=== PATIENT | female | born 1995 | race Two or more races ===

== ENCOUNTER 2024-10-20 11:51 | Outpatient (AMB) | payer MEDICAID, SELFPAY ==
[2024-10-20 12:08] VITALS: BP 129/83; PULSE 80; RESP 18; TEMP 36.2; O2SAT 98; BMI 31.8
--- NOTE | 2024-10-20 12:08 | AMB.GYNCLNOT ---
Vital Signs 10/20/24 12:08 Height 1.65 m Height Method Stated Weight 86.721 kg Weight Measurement Method Standing Scale BMI 31.8 BP 129/83 Blood Pressure Source Automatic Cuff Blood Pressure Location Left Upper Arm Position Sitting Respiration 18 Pulse 80 Pulse Source Monitor Temp 97.2 F Temp Source Oral Pulse Oximetry (%) 98 Oxygen Delivery Method Room Air Allergies/Home Meds Allergies & Medications Allergies No Known Allergies Allergy (Verified 10/20/24 12:08) Medication Reconciliation aspirin 81 mg tablet,delayed release (Adult Aspirin Regimen) 81 mg PO QDAY #60 tabs 10/20/24 [Rx] valacyclovir 1 gram tablet (Valtrex) 1,000 mg PO QDAY #60 tabs 10/20/24 [Rx] Intake Visit Data Collection New Patient or Established: New Patient (never been to [facility]) Reason for Visit:: PREGANCY VERFICATION Consent obtained for Telemed Visit: No Seen by Clinical Staff ONLY (RN/MA): No Truck Trailer Mechanic Required: No Do You Feel Safe at Home: Yes Authorities Contacted: N/A PCP or OBGYN visit in last 3 months: Yes Hx Now: Yes Are you currently on any form of Control: No Last menstrual period: 07/28/24 Pain Present Currently: No Pain Scale Used: Hutchinson-Kang/Numerical Pain scale:: 0 Smoking Status Smoking Status: Never smoker Internal Corrosion Specialist history Internal Corrosion Specialist History Menstrual regularity: regular Flow: normal Monthly: Yes How many days does period last: 5 Age at menarche: 15 Menopausal: No Currently sexually active: Yes Questionnaires Covid-19 Vaccine Questionnaire Has patient been vacinated for Covid-19 Have you been vacinated for Covid-19: Yes PHQ-9 PHQ-2 Over the last 2 weeks, how often have you been bothered by any of the following problems? 1. Little interest or pleasure in doing things: not at all 2. Feeling down, depressed, or hopeless: not at all Total score: 0 PHQ-9 3. Trouble falling or staying asleep, or sleeping too much: Not at all 4. Feeling tired or having little energy: Not at all 5. Poor appetite or overeating: Not at all 6. Feeling bad about yourself - or that you are a failure or have let yourself or your family down: Not at all 7. Trouble concentrating on things, such as reading the newspaper or watching television: Not at all 8. Moving or speaking so slowly that other people could have noticed? - Or the opposite - being so fidgety or restless that you have been moving around a lot more than usual: not at all 9. Thoughts that you would be better off or of hurting yourself in some way: Not at all Total score: 0 If you checked off any problems, how difficult have these problems made it for you to do your work, take care of things at home, or get along with other people?: not difficult at all Source: Developed by Drs. Darci Templeton, Ngozi Womack, Lupillo Cook and colleagues, with an educational saundra from [employer]. Depression screen completed yes Social History Living Situation History Marital Status: Single Lives With: Family Housing: House Tobacco History Smoking Status: Never smoker Second Hand Smoke Exposure: No Alcohol History Alcohol Intake: Never Domestic Abuse History Do You Feel Safe at Home: Yes History of Present Illness HPI Narrative 29-year-old 2 para 1 for test today. Patient was late to her appointment so only a test was done. Unplanned . Last period July 28, 2024. Estimated due date May 04, 2024. Patient reports that her periods are every month x 4 to 5 days. Menarche at 14 years old. Patient denies social habits. She has a history of having knee surgery with an ACL last week. 2013 and after that surgery she was in bed and immobilized and developed a pulmonary embolism that was treated. Patient had eye surgery in 2005 and again is 2007 as well she has 1 child that baby was born at 40 weeks uncomplicated 7 pounds 13 and she breast-fed that baby. Patient reports that after she was treated with Lovenox. Patient also reports a history of herpes. Last outbreak was in February. She takes Valtrex prophylactic nightly. She denies any signs symptoms of miscarriage, no leaking or bleeding or contractions. And both her and the father the baby are happy. Review of Systems Review of Systems Systems Reviewed: All systems reviewed, normal except as documented Exam Narrative Physical exam: + test. FH:12. fht: 145, General Limitations: no limitations General Appearance: alert, in no apparent distress, comfortable, cooperative, healthy appearing, well developed and well groomed Head Head exam: atraumatic, normocephalic and normal inspection ENT ENT exam: Present normal exam, normal oropharynx and mucous membranes moist Resp Respiratory exam: Present normal lung sounds bilaterally Card Cardiovascular exam: Present regular rate, normal rhythm and normal heart sounds Abdominal Abdominal exam: Present soft and normal bowel sounds Psych Psychiatric exam: Present normal affect and normal mood Results Objective Laboratory: + preg test Office Procedures OB Clinic LOC & Office Proc's Nursing/Assessment Patient Status: Initial/New Patient OB Clinic Nursing Assessment: Medication Reconciliation, Update PMH in EMR and Vital Signs OB Clinic Coordination of Care: Education Complex Pt/Fam, Consent,records obtained, informed consent, Education Simp Pt/Fam, Lab and Imaging orders and Staff clarify orders Special Needs: Heart tones Miscellaneous Interventions: Blood/Urine Collection New Patient Charge New Patient Point Assignment: [id number] New Patient Point Charge: RADIO REPAIRER DOMESTIC Level 4 ([id number]) In Clinic Bedside tests Bedside HCG: Yes Results Urine HCG Urine HCG Positive Last Edit by Bisi Woods MA on 10/20/24 12:12 Assessment & Plan Diagnosis / Problem List (1) confirmed by positive urine test: Status: Acute (2) Encounter for supervision of high risk in first trimester, antepartum: Status: Acute Plan Did a OB panel today with a hemoglobin A1c, CMP was done, PT PTT were done as well. NIPT and carrier screens were also done. I did the referral to [facility] for MFM. I started patient on low-dose baby aspirin. She will continue with her prenatals that she is taking and then I refilled her Valtrex. I also advised taking vitamin C and lysine and zinc daily as this can help prevent outbreaks of herpes as well. And patient was referred to OB for next appointment to evaluate her history of pulmonary embolus and add to management if needed. SAB precautions were discussed Additional Plan Follow Up: 2 Weeks (obi)
== END 2024-10-20 12:55 | disposition home or self-care (01) ==
LOC: HODSOBC 11:51
PROVIDERS: Supervising Provider Advanced Practice Midwife; Visit Provider Advanced Practice Midwife
DX: Z32.01 Encounter for pregnancy test, result positive (principal); O98.511 Other viral diseases complicating pregnancy, first trimester; B00.9 Herpesviral infection, unspecified; Z3A.00 Weeks of gestation of pregnancy not specified; Z86.711 Personal history of pulmonary embolism
CPT/HCPCS: 81025; 99204; G0463

== ENCOUNTER 2024-11-16 10:46 | Outpatient (AMB) | payer MEDICAID, SELFPAY ==
[2024-11-16 11:00] VITALS: BP 127/80; PULSE 92; RESP 17; TEMP 36.8; O2SAT 98; BMI 32.1
--- NOTE | 2024-11-16 11:00 | AMB.OBVISIT ---
Vital Signs 11/16/24 11:00 Height 1.65 m Height Method Measured Weight 87.317 kg Weight Measurement Method Standing Scale BMI 32.1 BP 127/80 Blood Pressure Source Automatic Cuff Blood Pressure Location Right Upper Arm Position Sitting Respiration 17 Pulse 92 Pulse Source Monitor Temp 98.3 F Temp Source Temporal Artery Scan Pulse Oximetry (%) 98 Oxygen Delivery Method Room Air Allergies/Home Meds Allergies & Medications Allergies No Known Allergies Allergy (Verified 11/16/24 11:00) Medication Reconciliation aspirin 81 mg tablet,delayed release (Adult Aspirin Regimen) 81 mg PO QDAY #60 tabs 10/20/24 [Rx Confirmed 11/16/24] valacyclovir 1 gram tablet (Valtrex) 1,000 mg PO QDAY #60 tabs 10/20/24 [Rx Confirmed 11/16/24] Intake Visit Data Collection New Patient or Established: Established Patient (seen at [facility] within 3 years) Reason for Visit:: OBC Consent obtained for Telemed Visit: Yes Seen by Clinical Staff ONLY (RN/MA): No Installations Inspector Required: No Do You Feel Safe at Home: Yes Authorities Contacted: N/A PCP or OBGYN visit in last 3 months: Yes Date of Last PCP or OBGYN visit: 10/20/24 Hx Now: Yes Are you currently on any form of Control: No Pain Present Currently: No Pain Scale Used: Hutchinson-Kang/Numerical Pain scale:: 0 Smoking Status Smoking Status: Never smoker Questionnaires Covid-19 Vaccine Questionnaire Has patient been vacinated for Covid-19 Have you been vacinated for Covid-19: Yes PHQ-9 PHQ-2 Over the last 2 weeks, how often have you been bothered by any of the following problems? 1. Little interest or pleasure in doing things: not at all PHQ-9 8. Moving or speaking so slowly that other people could have noticed? - Or the opposite - being so fidgety or restless that you have been moving around a lot more than usual: not at all Source: Developed by Drs. Darci Templeton, Ngozi Womack, Lupillo Cook and colleagues, with an educational saundra from [employer]. Social History Living Situation History Lives With: Family Housing: House Tobacco History Smoking Status: Never smoker Second Hand Smoke Exposure: No Alcohol History Alcohol Intake: Never Domestic Abuse History Do You Feel Safe at Home: Yes History of Present Illness HPI Narrative Myla Villafana, a 2 para 1 patient, presents for a routine visit. Her last menstrual period was July 28 of this year, with an estimated due date of May 04, 2025. She reports a history of herpes, with her last outbreak in February, for which she takes Valtrex. She also has a history of pulmonary embolism following knee surgery. The patient denies any current obstetric complaints. She reports experiencing some back pain but does not provide further details about its onset, duration, or severity. Myla mentions taking her vitamins as prescribed. She has a history of a full-term, uncomplicated delivery with her previous , resulting in a 7-pound, 13-ounce baby. , she was treated with Lovenox prophylactically due to her history of pulmonary embolism. Myla's previous and delivery were uncomplicated. She notes that her pulmonary embolism occurred after knee surgery on her atrial meniscus, during which she was immobilized for an extended period. This medical history influenced her care in her previous , leading to the prophylactic use of Lovenox. Care OB Visit Log OB Flowsheet Initial Weight: Not Recorded Date <del>?</del> EGA Weight BP Alb Glu CTX Pres Fundal ht FHR Mov Dilation Station Effacement Hx Notes Visit Note 11/16/24 <del>?</del> 15w 6d 87.317 kg 127/80 occasional unknown 155 14w0d with h/o pulmonary embolism and 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 LMP 07/28/24, KODI 05/04/25 confirmed by sono. FHR 150, anatomy appropriate, placenta and fluid normal. Denies cramping, nausea, or OB complaints. Reports back pain without detail. Prior delivery full-term and uncomplicated. PE occurred after prior knee surgery; prophylactic Lovenox given in prior . Plan: Continue Valtrex and vitamins, monitor for VTE s/sx, consider Lovenox again. Send to [facility] for anatomy scan. Labs pending from [facility]?will call if abnormal. F/u in 4 weeks. KODI Calculator Estimated Delivery Date Method Current WG Current Estimate 05/04/25 LMP (Certain) 16w 0d Office Procedures OB Clinic LOC & Office Proc's Nursing/Assessment Patient Status: Established Patient OB Clinic Nursing Assessment: Medication Reconciliation, Update PMH in EMR and Vital Signs OB Clinic Coordination of Care: Complex Care and Chronic Disease 1-5, Consent,records obtained, informed consent, 4+ Authorizations needed, Lab and Imaging orders and Results/Orders obtained Special Needs: Heart tones Established Patient Charge Established Patient Point Assignment: 135 Established Patient Point Charge: EP Level 4 (120-155) Assessment & Plan Diagnosis / Problem List (1) Maternal obesity syndrome in first trimester: Status: Acute (2) Supervision of high risk , unspecified, first trimester: Status: Acute Plan Intrauterine Assessment: Patient is at 14 weeks gestation based on ultrasound measurements. Last menstrual period was July 28 with estimated due date of May 04, 2025. Ultrasound showed normal anatomy for gestational age, with heart rate of 150 bpm. Placenta appeared normal and amniotic fluid adequate. Patient denies any obstetric complaints. Previous resulted in full-term, uncomplicated delivery of 7-pound, 13-ounce infant. Plan: - Continue vitamins - Retrieve lab results from [facility] later today - Call patient if any abnormal results - Referral to [facility] for 2nd trimester anatomy scan - Follow-up visit in 4 weeks History of pulmonary embolism Assessment: Patient has history of pulmonary embolism following knee surgery with prolonged immobilization. In previous , treated prophylactically with Lovenox , but not during . Plan: - Monitor for signs and symptoms of venous thromboembolism throughout - Discuss potential need for thromboprophylaxis closer to delivery Herpes simplex virus infection Assessment: Patient reports history of herpes with last outbreak in February. Currently on suppressive therapy with Valtrex. Plan: - Continue Valtrex as prescribed - Monitor for any signs of outbreak during
== END 2024-11-16 11:17 | disposition home or self-care (01) ==
PROVIDERS: PCP Obstetrics & Gynecology; Referring Provider Obstetrics & Gynecology; Supervising Provider Obstetrics & Gynecology; Visit Provider Obstetrics & Gynecology
DX: O09.892 Supervision of other high risk pregnancies, second trimester (principal); O99.212 Obesity complicating pregnancy, second trimester; O98.312 Other infections with a predominantly sexual mode of transmission complicating pregnancy, second trimester; A60.00 Herpesviral infection of urogenital system, unspecified; Z3A.15 15 weeks gestation of pregnancy; Z86.711 Personal history of pulmonary embolism; Z79.82 Long term (current) use of aspirin
CPT/HCPCS: 99214; G0463

== ENCOUNTER 2024-12-21 10:47 | Outpatient (AMB) | payer MEDICAID, SELFPAY ==
--- NOTE | 2024-12-21 11:03 | AMB.OBVISIT ---
Vital Signs 12/21/24 11:04 Height 1.65 m Height Method Stated Weight 89.584 kg Weight Measurement Method Standing Scale BMI 32.9 BP 118/73 Blood Pressure Source Automatic Cuff Blood Pressure Location Left Upper Arm Position Sitting Respiration 16 Pulse 83 Pulse Source Monitor Temp 97 F Temp Source Oral Pulse Oximetry (%) 98 Oxygen Delivery Method Room Air Allergies/Home Meds Allergies & Medications Allergies No Known Allergies Allergy (Verified 12/21/24 11:05) Medication Reconciliation aspirin 81 mg tablet,delayed release (Adult Aspirin Regimen) 81 mg PO QDAY #60 tabs 10/20/24 [Rx Confirmed 12/21/24] valacyclovir 1 gram tablet (Valtrex) 1,000 mg PO QDAY #60 tabs 10/20/24 [Rx Confirmed 12/21/24] Intake Visit Data Collection New Patient or Established: Established Patient (seen at [facility] within 3 years) Reason for Visit:: OBC Seen by Clinical Staff ONLY (RN/MA): No Investigator Fraud Required: No Do You Feel Safe at Home: Yes Authorities Contacted: N/A PCP or OBGYN visit in last 3 months: Yes Date of Last PCP or OBGYN visit: 11/16/24 Hx Now: Yes Are you currently on any form of Control: No Pain Present Currently: No Pain Scale Used: Hutchinson-Kang/Numerical Pain scale:: 0 Smoking Status Smoking Status: Never smoker Questionnaires Covid-19 Vaccine Questionnaire Has patient been vacinated for Covid-19 Have you been vacinated for Covid-19: Yes PHQ-9 PHQ-2 Over the last 2 weeks, how often have you been bothered by any of the following problems? 1. Little interest or pleasure in doing things: not at all 2. Feeling down, depressed, or hopeless: not at all Total score: 0 PHQ-9 3. Trouble falling or staying asleep, or sleeping too much: Not at all 4. Feeling tired or having little energy: Not at all 5. Poor appetite or overeating: Not at all 6. Feeling bad about yourself - or that you are a failure or have let yourself or your family down: Not at all 7. Trouble concentrating on things, such as reading the newspaper or watching television: Not at all 8. Moving or speaking so slowly that other people could have noticed? - Or the opposite - being so fidgety or restless that you have been moving around a lot more than usual: not at all 9. Thoughts that you would be better off or of hurting yourself in some way: Not at all Total score: 0 If you checked off any problems, how difficult have these problems made it for you to do your work, take care of things at home, or get along with other people?: not difficult at all Source: Developed by Drs. Darci Templeton, Ngozi Womack, Lupillo Cook and colleagues, with an educational saundra from [employer]. Depression screen completed yes Social History Living Situation History Marital Status: Single Lives With: Family Housing: House Tobacco History Smoking Status: Never smoker Second Hand Smoke Exposure: No Alcohol History Alcohol Intake: Never Domestic Abuse History Do You Feel Safe at Home: Yes Care OB Visit Log OB Flowsheet Initial Weight: Not Recorded Date <del>?</del> EGA Weight BP Alb Glu CTX Pres Fundal ht FHR Mov Dilation Station Effacement Hx Notes Visit Note 11/16/24 <del>?</del> 15w 6d 87.317 kg 127/80 occasional unknown 155 14w0d with h/o pulmonary embolism and 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 LMP 07/28/24, KODI 05/04/25 confirmed by sono. FHR 150, anatomy appropriate, placenta and fluid normal. Denies cramping, nausea, or OB complaints. Reports back pain without detail. Prior delivery full-term and uncomplicated. PE occurred after prior knee surgery; prophylactic Lovenox given in prior . Plan: Continue Valtrex and vitamins, monitor for VTE s/sx, consider Lovenox again. Send to [facility] for anatomy scan. Labs pending from [facility]?will call if abnormal. F/u in 4 weeks. 12/21/24 <del>?</del> 20w 6d 89.584 kg 118/73 occasional unknown 145 No contractions, LOF, VB and reports good FM. Patient reports lower back pain and left-sided pain, as well as pelvic pressure. Denies urinary symptoms, fever, or chills. Denies SNELL, VC, and epigastric pain. - Myla Villafana is a 1 para 1 female at 20 weeks and 6 days gestation presenting for routine care. - She reports lower back pain affecting her whole lower back and left side. - She experiences pelvic pressure described as a lot of pressure down there. - She denies urinary symptoms including frequency, urgency, or burning. - She denies fever or chills. - She reports normal urinary patterns. - Glucose tolerance test to be completed at [facility] 1-2 days before next appointment (approximately 3-4 weeks from now, around 24 weeks gestation) - Follow up appointment in 4 weeks - Continue current care KODI Calculator Estimated Delivery Date Method Current WG Current Estimate 05/04/25 LMP (Certain) 21w 0d Notes Visit Date: 12/21/24 Last Updated by: Steffen Chandra MD - Hepatitis B screen: negative - Hepatitis C: negative - Rubella: immune - Blood group: B positive - Antibody screen: negative - HIV: non-reactive - Gonorrhea: negative - Maternity genome testing: negative for trisomy 21, 18, 13; gender consistent with male - SMS screening: negative - Cystic fibrosis screening: negative - heart rate: 148-149 bpm (normal) Office Procedures OBC Clinic LOC & Office Proc's Nursing/Assessment Patient Status: Established Patient OB Clinic Nursing Assessment: Medication Reconciliation, Update PMH in EMR and Vital Signs OB Clinic Coordination of Care: Education Complex Pt/Fam, Consent,records obtained, informed consent, Lab and Imaging orders, Results/Orders obtained and Staff clarify orders Special Needs: Heart tones Established Patient Charge Established Patient Point Assignment: 115 Established Patient Point Charge: EP Level 3 (80-115) Assessment & Plan Diagnosis / Problem List (1) Supervision of high risk , unspecified, first trimester: Status: Acute (2) Genital herpes affecting : Status: Acute (3) Maternal obesity syndrome in first trimester: Status: Acute Plan Problem List - , 20 weeks and 6 days gestation - Genital herpes - Low back pain - Pelvic pressure Assessment 20 weeks and 6 days intrauterine with estimated due date of May 04, 2025, in a 2 para 1 patient. heart rate is 148-149 beats per minute, which is within normal limits. Patient reports lower back pain, particularly on the left side, and pelvic pressure. Maternal screening tests are reassuring including negative hepatitis B and C, rubella immune, blood type B positive with negative antibody screen, HIV non-reactive, and negative gonorrhea screening. Genetic screening shows negative results for trisomy 21, 18, and 13, with gender consistent with male. SMS screening and cystic fibrosis screening are both negative. Patient has history of herpes lesions previously treated with Valtrex with pending lab results. Plan - Glucose tolerance test to be completed at [facility] 1-2 days before next appointment (approximately 3-4 weeks from now, around 24 weeks gestation) - Follow up appointment in 4 weeks - Continue current care 1. Progress Reviewed gestational age at 20 weeks and 6 days, growth, and heart rate of 148-149 bpm which is normal. Planned frequent visits with next appointment in 4 weeks. 2. Instructed patient to monitor movements and report decreases immediately. 3. Testing Counseled on routine third-trimester labs per guidelines including glucose screening test ordered for 24 weeks. Discussed potential need for ultrasound or monitoring based on risk factors. 4. Preeclampsia Precaution Educated on preeclampsia signs: severe headache, vision changes, right upper quadrant pain, sudden swelling. Advised urgent reporting of symptoms and discussed blood pressure monitoring if high risk. 5. Labor Precautions Reviewed labor signs: regular contractions, pelvic pressure, back pain, bleeding, or fluid leakage. Instructed to seek immediate care for these symptoms. 6. Lifestyle and Delivery Preparation Reinforced vitamins, nutrition, and safe activity. Discussed plan, pain management, and . Advised on labor preparation (e.g., hospital bag) and expectations. 7. Psychosocial Support Assessed emotional well-being and offered resources for mental health or parenting support.
[2024-12-21 11:04] VITALS: BP 118/73; PULSE 83; RESP 16; TEMP 36.1; O2SAT 98; BMI 32.9
== END 2024-12-21 11:14 | disposition home or self-care (01) ==
LOC: HODSOBC 10:47
PROVIDERS: Supervising Provider Obstetrics & Gynecology; Visit Provider Obstetrics & Gynecology
DX: O09.892 Supervision of other high risk pregnancies, second trimester (principal); O99.212 Obesity complicating pregnancy, second trimester; O98.312 Other infections with a predominantly sexual mode of transmission complicating pregnancy, second trimester; A60.00 Herpesviral infection of urogenital system, unspecified; O99.891 Other specified diseases and conditions complicating pregnancy; M54.50 Low back pain, unspecified; Z3A.20 20 weeks gestation of pregnancy
CPT/HCPCS: 99213; G0463

== ENCOUNTER 2025-01-11 10:34 | Outpatient (AMB) | payer MEDICAID, SELFPAY ==
[2025-01-11 10:35] VITALS: BP 117/75; PULSE 75; RESP 14; TEMP 36.8; O2SAT 98; BMI 33.3
--- NOTE | 2025-01-11 10:35 | AMB.OBVISIT ---
Vital Signs 01/11/25 10:35 Height 1.65 m Height Method Stated Weight 90.718 kg Weight Measurement Method Standing Scale BMI 33.3 BP 117/75 Blood Pressure Source Automatic Cuff Blood Pressure Location Left Upper Arm Position Sitting Respiration 14 Pulse 75 Pulse Source Monitor Temp 98.2 F Temp Source Oral Pulse Oximetry (%) 98 Oxygen Delivery Method Room Air Allergies/Home Meds Allergies & Medications Allergies No Known Allergies Allergy (Verified 03/17/25 08:57) Medication Reconciliation aspirin 81 mg tablet,delayed release (Adult Aspirin Regimen) 81 mg PO QDAY #60 tabs 10/20/24 [Rx Confirmed 03/17/25] valacyclovir 1 gram tablet (Valtrex) 1,000 mg PO QDAY #60 tabs 10/20/24 [Rx Confirmed 03/17/25] vits no.126-ferrous fum 28 mg iron-folic acid 800 mcg tablet (Classic ) 1 tab PO DAILY 01/11/25 [History Confirmed 03/17/25] Intake Visit Data Collection New Patient or Established: Established Patient (seen at [facility] within 3 years) Reason for Visit:: CARE Seen by Clinical Staff ONLY (RN/MA): No Information Services Vice President Required: No Do You Feel Safe at Home: Yes Authorities Contacted: N/A PCP or OBGYN visit in last 3 months: Yes Hx Now: Yes Are you currently on any form of Control: No Pain Present Currently: No Pain Scale Used: Hutchinson-Kang/Numerical Pain scale:: 0 Smoking Status Smoking Status: Never smoker Questionnaires Covid-19 Vaccine Questionnaire Has patient been vacinated for Covid-19 Have you been vacinated for Covid-19: Yes PHQ-9 PHQ-2 Over the last 2 weeks, how often have you been bothered by any of the following problems? 1. Little interest or pleasure in doing things: not at all 2. Feeling down, depressed, or hopeless: not at all Total score: 0 PHQ-9 3. Trouble falling or staying asleep, or sleeping too much: Not at all 4. Feeling tired or having little energy: Not at all 5. Poor appetite or overeating: Not at all 6. Feeling bad about yourself - or that you are a failure or have let yourself or your family down: Not at all 7. Trouble concentrating on things, such as reading the newspaper or watching television: Not at all 8. Moving or speaking so slowly that other people could have noticed? - Or the opposite - being so fidgety or restless that you have been moving around a lot more than usual: not at all 9. Thoughts that you would be better off or of hurting yourself in some way: Not at all Total score: 0 Source: Developed by Drs. Darci Templeton, Ngozi Womack, Lupillo Cook and colleagues, with an educational saundra from [employer]. Depression screen completed yes Social History Living Situation History Lives With: Family Housing: House Tobacco History Smoking Status: Never smoker Second Hand Smoke Exposure: No Alcohol History Alcohol Intake: Never Domestic Abuse History Do You Feel Safe at Home: Yes Care OB Visit Log OB Flowsheet Initial Weight: Not Recorded Date <del>?</del> EGA Weight BP Alb Glu CTX Pres Fundal ht FHR Mov Dilation Station Effacement Hx Notes Visit Note 11/16/24 <del>?</del> 15w 6d 87.317 kg 127/80 occasional unknown 155 14w0d with h/o pulmonary embolism and 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 LMP 07/28/24, KDOI 05/04/25 confirmed by sono. FHR 150, anatomy appropriate, placenta and fluid normal. Denies cramping, nausea, or OB complaints. Reports back pain without detail. Prior delivery full-term and uncomplicated. PE occurred after prior knee surgery; prophylactic Lovenox given in prior . Plan: Continue Valtrex and vitamins, monitor for VTE s/sx, consider Lovenox again. Send to [facility] for anatomy scan. Labs pending from [facility]?will call if abnormal. F/u in 4 weeks. 12/21/24 <del>?</del> 20w 6d 89.584 kg 118/73 occasional unknown 145 No contractions, LOF, VB and reports good FM. Patient reports lower back pain and left-sided pain, as well as pelvic pressure. Denies urinary symptoms, fever, or chills. Denies SNELL, VC, and epigastric pain. - Myla Villafana is a 1 para 1 female at 20 weeks and 6 days gestation presenting for routine care. - She reports lower back pain affecting her whole lower back and left side. - She experiences pelvic pressure described as a lot of pressure down there. - She denies urinary symptoms including frequency, urgency, or burning. - She denies fever or chills. - She reports normal urinary patterns. - Glucose tolerance test to be completed at [facility] 1-2 days before next appointment (approximately 3-4 weeks from now, around 24 weeks gestation) - Follow up appointment in 4 weeks - Continue current care 01/11/25 <del>?</del> 23w 6d 90.718 kg 117/75 occasional unknown 155 - Myla Villafana presents for routine visit at 23 weeks and 6 days gestation. - Patient has a history of pulmonary embolism after knee surgery in 2019. - Patient has not completed glucose and other laboratory tests that were ordered at the last appointment. - Patient reports feeling pressure and is requesting to be placed out of work on disability. - Patient is experiencing symptoms concerning for labor, prompting discussion of labor workup including internal ultrasound and fibronectin (FFN) testing. - Complete glucose test and other labs that were ordered at previous appointment - Proceed to hospital for labor workup including internal ultrasound and fibronectin (FFN) test - Initiate 4-week work disability leave with plan to extend for remainder of when patient reaches approximately 28 weeks gestation - Provide work disability letter to patient - Follow up appointment scheduled for the 01/20/25 <del>?</del> 25w 1d 91.852 kg 115/61 absent unknown 148 - She reports the baby is active with no contractions or other issues. - She confirms adherence to vitamins. - She denies diabetes. - Follow up in 4 weeks - Next round of blood tests due at next visit (around 30 weeks) - Tdap vaccine administration at next visit - Continue vitamins KODI Calculator Estimated Delivery Date Method Current WG Current Estimate 05/04/25 LMP (Certain) 34w 0d Notes Visit Date: 12/21/24 Last Updated by: Steffen Chandra MD - Hepatitis B screen: negative - Hepatitis C: negative - Rubella: immune - Blood group: B positive - Antibody screen: negative - HIV: non-reactive - Gonorrhea: negative - Maternity genome testing: negative for trisomy 21, 18, 13; gender consistent with male - SMS screening: negative - Cystic fibrosis screening: negative - heart rate: 148-149 bpm (normal) Office Procedures [facility] LOC & Office Proc's Nursing/Assessment Patient Status: Established Patient OB Clinic Nursing Assessment: Medication Reconciliation, Update PMH in EMR and Vital Signs OB Clinic Coordination of Care: Complex Care and Chronic Disease 1-5, Consent,records obtained, informed consent, Education Simp Pt/Fam, Lab and Imaging orders, Results/Orders obtained and Staff clarify orders Special Needs: Heart tones Established Patient Charge Established Patient Point Assignment: 135 Established Patient Point Charge: EP Level 4 (120-155) Assessment & Plan Diagnosis / Problem List (1) Supervision of high risk , unspecified, second trimester: Status: Acute Plan Problem List - Pulmonary embolism - labor Assessment 23-week 6-day patient presenting for routine visit with complaints of pelvic pressure concerning for labor. Patient has history of pulmonary embolism following knee surgery in 2019. Patient has not completed previously ordered glucose tolerance test and other laboratory studies. heart rate is 165 bpm, which is within normal limits. Plan - Complete glucose test and other labs that were ordered at previous appointment - Proceed to hospital for labor workup including internal ultrasound and fibronectin (FFN) test - Initiate 4-week work disability leave with plan to extend for remainder of when patient reaches approximately 28 weeks gestation - Provide work disability letter to patient - Follow up appointment scheduled for the 22 04. Progress Reviewed gestational age at 23 weeks and 6 days, growth, and heart rate (165 bpm, normal). Planned frequent visits (every 2 weeks until 36 weeks, then weekly). 2. Instructed patient to monitor movements and report decreases immediately. 3. Testing Counseled on routine third-trimester labs per guidelines. Patient has not completed glucose and other labs ordered at last appointment - instructed to complete before next visit. Discussed potential need for ultrasound or monitoring based on risk factors. 4. Preeclampsia Precaution Educated on preeclampsia signs: severe headache, vision changes, right upper quadrant pain, sudden swelling. Advised urgent reporting of symptoms and discussed blood pressure monitoring if high risk. 5. Labor Precautions Reviewed labor signs: regular contractions, pelvic pressure, back pain, bleeding, or fluid leakage. Instructed to seek immediate care for these symptoms. Patient experiencing pressure symptoms - planned labor workup including internal ultrasound and FFN test at hospital. 6. Lifestyle and Delivery Preparation Reinforced vitamins, nutrition, and safe activity. Discussed plan, pain management, and . Advised on labor preparation (e.g., hospital bag) and expectations. 7. Psychosocial Support Assessed emotional well-being and offered resources for mental health or parenting support. Discussed work disability options with 4-week initial period followed by extension for remainder of .
== END 2025-01-11 10:55 | disposition home or self-care (01) ==
LOC: HODSOBC 10:34
PROVIDERS: Supervising Provider Obstetrics & Gynecology; Visit Provider Obstetrics & Gynecology
DX: O09.892 Supervision of other high risk pregnancies, second trimester (principal); O60.02 Preterm labor without delivery, second trimester; Z3A.23 23 weeks gestation of pregnancy; Z86.711 Personal history of pulmonary embolism
CPT/HCPCS: 99214; G0463

== ENCOUNTER 2025-01-11 11:12 | Observation (INO) | payer MEDICAID, SELFPAY ==
[2025-01-11 11:15] VITALS: BP 114/61; PULSE 72; RESP 17; RESP 99; TEMP 36.9; BMI 33.3
[2025-01-11 11:31] VITALS: BP 114/61; PULSE 71; PULSE 74; O2SAT 100
[2025-01-11 11:36] VITALS: PULSE 67; O2SAT 99
[2025-01-11 11:41] VITALS: PULSE 68; O2SAT 99
--- NOTE | 2025-01-11 11:44 | XR_ITS ---
Examination: OB Transvaginal ultrasound of the pelvis, limited Technique: Transvaginal sonographic images pelvis performed using white scale imaging Exam date and time: January 11, 2025, 11:40 a.m. INDICATIONS: labor, pelvic contractions today, unknown cervical length. FINDINGS: Cervix 3.7 cm close IMPRESSION: Cervix 3.7 cm closed.
[2025-01-11 11:51] VITALS: PULSE 83; O2SAT 99
[2025-01-11 13:08] LABS: FFN Specimen Descripton Clr Colrless Aqueous; Fetal Fibronectin Negative (Negative)
== END 2025-01-11 13:04 | disposition home or self-care (01) ==
PROVIDERS: Admitting Provider Obstetrics & Gynecology; PCP Nurse Practitioner Family; Visit Provider Obstetrics & Gynecology
DX: Z34.82 Encounter for supervision of other normal pregnancy, second trimester (principal); Z3A.23 23 weeks gestation of pregnancy
CPT/HCPCS: 59899; 76817; 82731

== ENCOUNTER 2025-01-20 10:59 | Outpatient (AMB) | payer MEDICAID, SELFPAY ==
[2025-01-20 11:23] VITALS: BP 115/61; PULSE 80; RESP 18; TEMP 36.2; O2SAT 98
--- NOTE | 2025-01-20 11:23 | OBCLNT_ITS ---
Vital Signs 01/20/25 11:23 Weight 91.852 kg Weight Measurement Method Standing Scale BP 115/61 Blood Pressure Source Automatic Cuff Blood Pressure Location Left Upper Arm Position Sitting Respiration 18 Pulse 80 Pulse Source Monitor Temp 97.2 F Temp Source Oral Pulse Oximetry (%) 98 Oxygen Delivery Method Room Air Allergies/Home Meds Allergies & Medications Allergies No Known Allergies Allergy (Verified 01/20/25 11:23) Medication Reconciliation aspirin 81 mg tablet,delayed release (Adult Aspirin Regimen) 81 mg PO QDAY #60 tabs 10/20/24 [Rx Confirmed 01/20/25] valacyclovir 1 gram tablet (Valtrex) 1,000 mg PO QDAY #60 tabs 10/20/24 [Rx Confirmed 01/20/25] vits no.126-ferrous fum 28 mg iron-folic acid 800 mcg tablet (Classic ) 1 tab PO DAILY 01/11/25 [History Confirmed 01/20/25] Intake Visit Data Collection New Patient or Established: Established Patient (seen at [facility] within 3 years) Reason for Visit:: obc Seen by Clinical Staff ONLY (RN/MA): No Anchorman Required: No Do You Feel Safe at Home: Yes Authorities Contacted: N/A PCP or OBGYN visit in last 3 months: Yes Date of Last PCP or OBGYN visit: 01/11/25 Hx Now: Yes Are you currently on any form of Control: No Pain Scale Used: Hutchinson-Kang/Numerical Pain scale:: 0 Smoking Status Smoking Status: Never smoker Immunizations Flu Vaccine in the Last 12 Months: No Flu Vaccine Exclusion Criteria: No Exclusion Criteria Questionnaires Covid-19 Vaccine Questionnaire Has patient been vacinated for Covid-19 Have you been vacinated for Covid-19: No PHQ-9 PHQ-2 Over the last 2 weeks, how often have you been bothered by any of the following problems? 1. Little interest or pleasure in doing things: not at all 2. Feeling down, depressed, or hopeless: not at all Total score: 0 PHQ-9 3. Trouble falling or staying asleep, or sleeping too much: Not at all 4. Feeling tired or having little energy: Not at all 5. Poor appetite or overeating: Not at all 6. Feeling bad about yourself - or that you are a failure or have let yourself or your family down: Not at all 7. Trouble concentrating on things, such as reading the newspaper or watching television: Not at all 8. Moving or speaking so slowly that other people could have noticed? - Or the opposite - being so fidgety or restless that you have been moving around a lot more than usual: not at all 9. Thoughts that you would be better off or of hurting yourself in some way: Not at all Total score: 0 If you checked off any problems, how difficult have these problems made it for you to do your work, take care of things at home, or get along with other people?: not difficult at all Source: Developed by Drs. Darci Templeton, Ngozi Womack, Lupillo Cook and colleagues, with an educational saundra from [employer]. Depression screen completed yes Social History Living Situation History Lives With: Family Housing: House Tobacco History Smoking Status: Never smoker Second Hand Smoke Exposure: No Alcohol History Alcohol Intake: Never Domestic Abuse History Do You Feel Safe at Home: Yes Care OB Visit Log OB Flowsheet Initial Weight: Not Recorded Date -?-?-?-?-?-?-?-?-?-?-?-?- EGA Weight BP Alb Glu CTX Pres Fundal ht FHR Mov Dilation Station Effacement Hx Notes Visit Note 11/16/24 -?-?-?-?-?-?-?-?-?-?-?-?- 15w 6d 87.317 kg 127/80 occasional unknown 155 14w0d with h/o pulmonary embolism and 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 LMP 07/28/24, KODI 05/04/25 confirmed by sono. FHR 150, anatomy appropriate, placenta and fluid normal. Denies cramping, nausea, or OB compl aints. Reports back pain without detail. Prior delivery full-term and uncomplicated. PE occurred after prior knee surgery; prophylactic Lovenox given in prior . P darnell: Continue Valtrex and vitamins, monitor for VTE s/sx, consider Lovenox again. Send to [facility] for anatomy scan. Labs pending from [facility]?will call if abnormal. F/u in 4 weeks. 12/21/24 -?-?-?-?-?-?-?-?-?-?-?-?- 20w 6d 89.584 kg 118/73 occasional unknown 145 No contractions, LOF, VB and reports good FM. Patient reports lower back pain and left -sided pain, as well as pelvic pressure. Denies urinary symptoms, fever, or chills. Denies SNELL, VC, and epigastric pain. - Myla Villafana is a 1 para 1 f emale at 20 weeks and 6 days gestation presenting for routine care. - She reports lower back pain affecting her whole lower back and left side. - She experiences pelvic pressure descri bed as a lot of pressure down there. - She denies urinary symptoms including frequency, urgency, or burning. - She denies fever or chills. - She reports normal urinary patterns. - Glucose tolerance test to be completed at [facility] 1-2 days before next appointment (approximately 3-4 weeks from now, around 24 weeks gestation) - Follow up appointment in 4 weeks - Continue current care 01/20/25 -?-?-?-?-?-?-?-?-?-?-?-?- 25w 1d 91.852 kg 115/61 absent unknown 148 - She reports the baby is active with no contractions or other issues. - She confirms adherence to vit amins. - She denies diabetes. - Fol low up in 4 weeks - Next round of blood tests due at next visit (around 30 weeks) - Tdap vaccine administration at next vi sit - Continue vitamins KODI Calculator Estimated Delivery Date Method Current WG Current Estimate 05/04/25 LMP (Certain) 25w 4d Notes Visit Date: 12/21/24 Last Updated by: Steffen Chandra MD - Hepatitis B screen: negative - Hepatitis C: negative - Rubella: immune - Blood group: B positive - Antibody screen: negative - HIV: non-reactive - Gonorrhea: negative - Maternity genome testing: negative for trisomy 21, 18, 13; gender consistent with male - SMS screening: negative - Cystic fibrosis screening: negative - heart rate: 148-149 bpm (normal) Office Procedures [facility] Clinic LOC & Office Proc's Nursing/Assessment Patient Status: Established Patient OB Clinic Nursing Assessment: Medication Reconciliation, Update PMH in EMR and Vital Signs OB Clinic Coordination of Care: Consent,records obtained, informed consent, Education Simp Pt/Fam, Lab and Imaging orders, Results/Orders obtained and Staff clarify orders Special Needs: Heart tones Established Patient Charge Established Patient Point Assignment: 110 Established Patient Point Charge: EP Level 3 (80-115) Assessment & Plan Diagnosis / Problem List (1) Genital herpes affecting : Status: Acute (2) Maternal obesity syndrome in first trimester: Status: Acute (3) Supervision of high risk , unspecified, second trimester: Status: Acute Plan Assessment 25-week and 1-day patient with negative 1-hour glucose tolerance test (result 112, normal). heart rate is normal at 145-148 bpm. Patient reports active movement with no contractions or other concerning symptoms. Patient is compliant with vitamins. Plan - Follow up in 4 weeks - Next round of blood tests due at next visit (around 30 weeks) - Tdap vaccine administration at next visit - Continue vitamins 1. Progress Reviewed gestational age (25 weeks and 1 day), growth, and heart rate (145-148 bpm, normal). Planned frequent visits (scheduled return in 4 weeks). 2. Instructed patient to monitor movements and report decreases immediately. 3. Testing Counseled on routine third-trimester labs per guidelines (next round of tests due around 30 weeks). Discussed potential need for ultrasound or monitoring based on risk factors. 4. Preeclampsia Precaution Educated on preeclampsia signs: severe headache, vision changes, right upper quadrant pain, sudden swelling. Advised urgent reporting of symptoms and discussed blood pressure monitoring if high risk. 5. Labor Precautions Reviewed labor signs: regular contractions, pelvic pressure, back pain, bleeding, or fluid leakage. Instructed to seek immediate care for these symptoms. 6. Lifestyle and Delivery Preparation Reinforced vitamins (patient confirmed taking vitamins), nutrition, and safe activity. Discussed plan, pain management, and . Advised on labor preparation (e.g., hospital bag) and expectations. 7. Psychosocial Support Assessed emotional well-being and offered resources for mental health or parenting support.
== END 2025-01-20 11:34 | disposition home or self-care (01) ==
LOC: HODSOBC 10:59
PROVIDERS: Supervising Provider Obstetrics & Gynecology; Visit Provider Obstetrics & Gynecology
DX: O09.892 Supervision of other high risk pregnancies, second trimester (principal); O99.212 Obesity complicating pregnancy, second trimester; O98.312 Other infections with a predominantly sexual mode of transmission complicating pregnancy, second trimester; A60.00 Herpesviral infection of urogenital system, unspecified; Z3A.25 25 weeks gestation of pregnancy
CPT/HCPCS: 99213; G0463

== ENCOUNTER 2025-02-21 10:35 | Outpatient (AMB) | payer MEDICAID, SELFPAY ==
[2025-02-21 10:44] VITALS: BP 116/74; PULSE 82; RESP 18; TEMP 36.2; O2SAT 98
--- NOTE | 2025-02-21 10:44 | AMB.OBPNC ---
Vital Signs 02/21/25 10:44 Weight 93.894 kg Weight Measurement Method Standing Scale BP 116/74 Blood Pressure Source Automatic Cuff Blood Pressure Location Left Upper Arm Position Sitting Respiration 18 Pulse 82 Pulse Source Monitor Temp 97.2 F Temp Source Oral Pulse Oximetry (%) 98 Oxygen Delivery Method Room Air Allergies/Home Meds Allergies & Medications Allergies No Known Allergies Allergy (Verified 03/17/25 08:57) Medication Reconciliation aspirin 81 mg tablet,delayed release (Adult Aspirin Regimen) 81 mg PO QDAY #60 tabs 10/20/24 [Rx Confirmed 03/17/25] valacyclovir 1 gram tablet (Valtrex) 1,000 mg PO QDAY #60 tabs 10/20/24 [Rx Confirmed 03/17/25] vits no.126-ferrous fum 28 mg iron-folic acid 800 mcg tablet (Classic ) 1 tab PO DAILY 01/11/25 [History Confirmed 03/17/25] Immunizations Immunizations Flu Vaccine in the Last 12 Months: No Flu Vaccine Exclusion Criteria: No Exclusion Criteria Care OB Visit Log OB Flowsheet Initial Weight: Not Recorded Date <del>?</del> EGA Weight BP Alb Glu CTX Pres Fundal ht FHR Mov Dilation Station Effacement Hx Notes Visit Note 11/16/24 <del>?</del> 15w 6d 87.317 kg 127/80 occasional unknown 155 14w0d with h/o pulmonary embolism and 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 LMP 07/28/24, KODI 05/04/25 confirmed by sono. FHR 150, anatomy appropriate, placenta and fluid normal. Denies cramping, nausea, or OB complaints. Reports back pain without detail. Prior delivery full-term and uncomplicated. PE occurred after prior knee surgery; prophylactic Lovenox given in prior . Plan: Continue Valtrex and vitamins, monitor for VTE s/sx, consider Lovenox again. Send to [facility] for anatomy scan. Labs pending from [facility]?will call if abnormal. F/u in 4 weeks. 12/21/24 <del>?</del> 20w 6d 89.584 kg 118/73 occasional unknown 145 No contractions, LOF, VB and reports good FM. Patient reports lower back pain and left-sided pain, as well as pelvic pressure. Denies urinary symptoms, fever, or chills. Denies SENLL, VC, and epigastric pain. - Myla Villafana is a 1 para 1 female at 20 weeks and 6 days gestation presenting for routine care. - She reports lower back pain affecting her whole lower back and left side. - She experiences pelvic pressure described as a lot of pressure down there. - She denies urinary symptoms including frequency, urgency, or burning. - She denies fever or chills. - She reports normal urinary patterns. - Glucose tolerance test to be completed at [facility] 1-2 days before next appointment (approximately 3-4 weeks from now, around 24 weeks gestation) - Follow up appointment in 4 weeks - Continue current care 01/11/25 <del>?</del> 23w 6d 90.718 kg 117/75 occasional unknown 155 - Myla Villafana presents for routine visit at 23 weeks and 6 days gestation. - Patient has a history of pulmonary embolism after knee surgery in 2019. - Patient has not completed glucose and other laboratory tests that were ordered at the last appointment. - Patient reports feeling pressure and is requesting to be placed out of work on disability. - Patient is experiencing symptoms concerning for labor, prompting discussion of labor workup including internal ultrasound and fibronectin (FFN) testing. - Complete glucose test and other labs that were ordered at previous appointment - Proceed to hospital for labor workup including internal ultrasound and fibronectin (FFN) test - Initiate 4-week work disability leave with plan to extend for remainder of when patient reaches approximately 28 weeks gestation - Provide work disability letter to patient - Follow up appointment scheduled for the 01/20/25 <del>?</del> 25w 1d 91.852 kg 115/61 absent unknown 148 - She reports the baby is active with no contractions or other issues. - She confirms adherence to vitamins. - She denies diabetes. - Follow up in 4 weeks - Next round of blood tests due at next visit (around 30 weeks) - Tdap vaccine administration at next visit - Continue vitamins 02/21/25 <del>?</del> 29w 5d 93.894 kg 116/74 absent unknown 145 - She recently saw maternal medicine for consultation regarding her history of blood clot. - Patient reports she is doing well overall, stating I'm good when asked about how everything is going. - She is currently taking baby aspirin as prescribed from the beginning of . - Taking two 81mg tablets daily for a total of 162mg (equivalent to high-dose aspirin at 160mg as recommended by maternal medicine). - She is not currently on anticoagulation therapy during this . - Patient had an ultrasound on January 31 showing baby measuring 840 grams at the 38th percentile. - She has an upcoming follow-up ultrasound scheduled for March 14 with [facility] to recheck the baby's kidneys. - Continue high-dose aspirin 160 mg daily (patient currently taking two 81 mg tablets) - Obtain CBC and RPR labs at [facility] to check for anemia (routine 30-week testing) - Defer thrombophilia labs until 6-8 weeks for more accurate results - Follow-up ultrasound with [facility] on March 14 to reassess kidneys - Schedule next obstetric visit after March 14 ultrasound - Call patient if any lab abnormalities before next visit KODI Calculator Estimated Delivery Date Method Current WG Current Estimate 05/04/25 LMP (Certain) 34w 0d Notes Visit Date: 12/21/24 Last Updated by: Steffen Chandra MD - Hepatitis B screen: negative - Hepatitis C: negative - Rubella: immune - Blood group: B positive - Antibody screen: negative - HIV: non-reactive - Gonorrhea: negative - Maternity genome testing: negative for trisomy 21, 18, 13; gender consistent with male - SMS screening: negative - Cystic fibrosis screening: negative - heart rate: 148-149 bpm (normal) Office Procedures [facility] LOC & Office Proc's Nursing/Assessment Patient Status: Established Patient OB Clinic Nursing Assessment: Medication Reconciliation, Update PMH in EMR and Vital Signs OB Clinic Coordination of Care: Consent,records obtained, informed consent, Education Simp Pt/Fam, Lab and Imaging orders, Results/Orders obtained and Staff clarify orders Special Needs: Heart tones Established Patient Charge Established Patient Point Assignment: 110 Established Patient Point Charge: EP Level 3 (80-115) Assessment & Plan Diagnosis / Problem List (1) Supervision of high risk , unspecified, second trimester: Status: Acute Plan Problem List - at 29 weeks and 5 days gestation - Pulmonary embolism - renal abnormality Assessment 29-week 5-day patient with history of pulmonary embolism, currently not on anticoagulation. Recent ultrasound from January 31 shows weight of 840 grams at 38th percentile. Patient is currently taking high-dose aspirin (160 mg) as prescribed by maternal medicine. Maternal medicine has discussed thrombophilia workup, which will be deferred until for more accurate results. Follow-up ultrasound scheduled to reassess kidneys. Plan - Continue high-dose aspirin 160 mg daily (patient currently taking two 81 mg tablets) - Obtain CBC and RPR labs at [facility] to check for anemia (routine 30-week testing) - Defer thrombophilia labs until 6-8 weeks for more accurate results - Follow-up ultrasound with [facility] on March 14 to reassess kidneys - Schedule next obstetric visit after March 14 ultrasound - Call patient if any lab abnormalities before next visit 1. Progress Reviewed gestational age (29 weeks and 5 days), growth (840 grams, 38th percentile), and heart rate (138 bpm). Planned frequent visits (every 2 weeks until 36 weeks, then weekly). 2. Instructed patient to monitor movements and report decreases immediately. 3. Testing Counseled on routine third-trimester labs per guidelines (CBC and RPR ordered). Discussed potential need for ultrasound or monitoring based on risk factors (follow-up ultrasound scheduled March 14 to check baby's kidneys). 4. Preeclampsia Precaution Educated on preeclampsia signs: severe headache, vision changes, right upper quadrant pain, sudden swelling. Advised urgent reporting of symptoms and discussed blood pressure monitoring if high risk (patient started on high-dose aspirin 160mg for preeclampsia prevention). 5. Labor Precautions Reviewed labor signs: regular contractions, pelvic pressure, back pain, bleeding, or fluid leakage. Instructed to seek immediate care for these symptoms. 6. Lifestyle and Delivery Preparation Reinforced vitamins, nutrition, and safe activity. Discussed plan, pain management, and . Advised on labor preparation (e.g., hospital bag) and expectations. 7. Psychosocial Support Assessed emotional well-being and offered resources for mental health or parenting support.
== END 2025-02-21 11:11 | disposition home or self-care (01) ==
LOC: HODSOBC 10:35
PROVIDERS: Supervising Provider Obstetrics & Gynecology; Visit Provider Obstetrics & Gynecology
DX: O09.893 Supervision of other high risk pregnancies, third trimester (principal); O35.EXX0 Maternal care for other (suspected) fetal abnormality and damage, fetal genitourinary anomalies, not applicable or unspecified; Z3A.29 29 weeks gestation of pregnancy; Z86.711 Personal history of pulmonary embolism
CPT/HCPCS: 99213; G0463

== ENCOUNTER 2025-03-17 08:52 | Outpatient (AMB) | payer MEDICAID, SELFPAY ==
--- NOTE | 2025-03-17 08:53 | OBCLNT_ITS ---
Vital Signs 03/17/25 08:56 Weight 94.801 kg Weight Measurement Method Standing Scale BP 116/80 Blood Pressure Source Automatic Cuff Blood Pressure Location Left Upper Arm Position Sitting Respiration 18 Pulse 90 Pulse Source Monitor Temp 97.2 F Temp Source Oral Pulse Oximetry (%) 98 Oxygen Delivery Method Room Air Allergies/Home Meds Allergies & Medications Allergies No Known Allergies Allergy (Verified 03/28/25 10:07) Medication Reconciliation aspirin 81 mg tablet,delayed release (Adult Aspirin Regimen) 81 mg PO QDAY #60 tabs 10/20/24 [Rx Confirmed 03/28/25] valacyclovir 1 gram tablet (Valtrex) 1,000 mg PO QDAY #60 tabs 10/20/24 [Rx Confirmed 03/28/25] vits no.126-ferrous fum 28 mg iron-folic acid 800 mcg tablet (Classic ) 1 tab PO DAILY 01/11/25 [History Confirmed 03/28/25] Immunizations Immunizations Flu Vaccine in the Last 12 Months: No Flu Vaccine Exclusion Criteria: No Exclusion Criteria Care OB Visit Log OB Flowsheet Initial Weight: Not Recorded Date -?-?-?-?-?--?-?-?-?-?-?-?- EGA Weight BP Alb Glu CTX Pres Fundal ht FHR Mov Dilation Station Effacement Hx Notes Visit Note 11/16/24 -?-?-?-?-?-?-?-?-?-?-?-?- 15w 6d 87.317 kg 127/80 occasional unknown 155 14w0d with h/o pulmonary embolism and 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 LMP 07/28/24, KODI 05/04/25 confirmed by sono. FHR 150, anatomy appropriate, placenta and fluid normal. Denies cramping, nausea, or OB complaints. Reports back pain without detail. Prior delivery full-term and uncomplicated. PE occurred after prior knee surgery; prophylactic Lovenox given in prior . P darnell: Continue Valtrex and vitamins, monitor for VTE s/sx, consider Lovenox again. Send to [facility] for anatomy scan. Labs pending from [facility]?will call if abnormal. F/u in 4 weeks. 12/21/24 -?-?-?-?-?-?-?-?-?-?-?-?- 20w 6d 89.584 kg 118/73 occasional unknown 145 No contractions, LOF, VB and reports good FM. Patient reports lower back pain and left -sided pain, as well as pelvic pressure. Denies urinary symptoms, fever, or chills. Denies SNELL, VC, and epigastric pain. - Myla Villafana is a 1 para 1 f emale at 20 weeks and 6 days gestation presenting for routine care. - She reports lower back pain affecting her whole lower back and left side. - She experiences pelvic pressure descri bed as a lot of pressure down there. - She denies urinary symptoms including frequency, urgency, or burning. - She denies fever or chills. - She reports normal urinary patterns. - Glucose tolerance test to be completed at [facility] 1-2 days before next appointment (approximately 3-4 weeks from now, around 24 weeks gestation) - Follow up appointment in 4 weeks - Continue current care 01/11/25 -?-?-?-?-?-?-?-?-?-?-?-?- w 6d 90.718 kg 117/75 occasional unknown 155 - Myla Villafana presents for routine visit at 23 weeks and 6 days gestation. - Patient has a history of pulmonary emb olism after knee surgery in 2019. - Patient has not completed glucose and other laboratory tests that were ordered at the last appointment. - Patient reports feeling pressure and i s requesting to be placed out of work on disability. - Patient is experiencing symptoms ana rning for labor, prompting discussion of labor workup including internal ultrasound and fibronectin (FFN) testing. - Com plete glucose test and other labs that were ordered at previous appointment - Proceed to hospital for labor workup including internal ultrasound and fibronectin (FFN) test - Initiate 4-week work disability leave with plan to extend for remainder of when patient reaches approximately 28 weeks gestation - Provide work disability letter to lizzy ent - Follow up appointment scheduled for 01/20/25 -?-?-?-?-?-?-?-?-?-?-?-?- 25w 1d 91.852 kg 115/61 absent unknown 148 - She reports the baby is active with no contractions or other issues. - She confirms adherence to vit amins. - She denies diabetes. - Fol low up in 4 weeks - Next round of blood tests due at next visit (around 30 weeks) - Tdap vaccine administration at next vi sit - Continue vitamins 02/21/25 -?-?-?-?-?-?-?-?-?-?-?-?- 29w 5d 93.894 kg 116/74 absent unknown 145 - She recently saw maternal medicine for consultation regarding her history of blood clot. - Patient reports she is doing well over all, stating I'm good when asked about how everything is going. - She is currently taking baby aspirin a s prescribed from the beginning of . - Taking two 81mg tablets daily for a total of 162mg (equivalent to high-dose aspirin at 160mg as recommended by maternal medicine). - She is not currently on anticoagulatio n therapy during this . - Patient had an ultrasound on January 31 showing baby measuring 840 grams at the 38th percentile. - She has an upcoming follow-up ultrasou nd scheduled for March 14 with [facility] to recheck the baby's kidneys. - Continue high-dose aspirin 160 mg daily (patient currently taking two 81 mg tablets) - [facility] for [facility] (routine 30-week testing) - Defer thrombophilia labs until 6-8 wee ks for more accurate results - Follow-up ultrasound with [facility] on March 14 to reassess kidneys - Schedule next obstetric visit after ber 16 ultrasound - Call patient if any lab abnormalities before next visit 03/17/25 -?-?-?-?-?-?-?--?-?-?-?-?- 33w 1d 94.801 kg 116/80 absent unknown 34 152 active - She reports experiencing contractions that come and go. - Contractions occur daily but are not consistently close together - She does not feel they are occurring at 5-minute intervals - Baby remains active. - She denies any other issues or concerns. - GBS culture swab at 36 weeks - Follow up in 2-3 weeks - Order CBC (previous order did not come through) - Patient instructed to time contraction s and come in for evaluation if contractions are 5 minutes apart and persist for 20-30 minutes 03/28/25 -?-?-?-?-?-?-?-?-?-?-?-?- 34w 5d 96.332 kg 121/77 occasional unstable 35 135 active - She reports experiencing contractions but describes them as not that bad. - She did not seek evaluation at the h ospital due to the mild nature of the contractions. - She experiences soreness in her back . - She clarifies that her previous delive ry was not labor, contrary to what was documented in her delivery record. - She reports that renal dilatatio n has resolved per last [facility] ultrasounds. - Group B strep culture swab to be performed at next appointment - Follow up in 2 weeks - Patient instructed to come to hospital for evaluation if experiencing contractions given history KODI Calculator Estimated Delivery Date Method Current WG Current Estimate 05/04/25 LMP (Certain) 34w 5d Notes Visit Date: 03/17/25 Last Updated by: Steffen Chandra MD Laboratory, Imaging, and Diagnostic Test Results - CBC (03/11): Hemoglobin 12.1 g/dL - RPR: Nonreactive - MFM ultrasound at [facility]: Single fetus at 32 weeks 5 days, cephalic presentation, EFW 2014 grams at 37th percentile, normal amniotic fluid, normal anatomy, normal renal pelvis (right pelvicaliectasis resolved) Visit Date: 12/21/24 Last Updated by: Steffen Chandra MD - Hepatitis B screen: negative - Hepatitis C: negative - Rubella: immune - Blood group: B positive - Antibody screen: negative - HIV: non-reactive - Gonorrhea: negative - Maternity genome testing: negative for trisomy 21, 18, 13; gender consis tent with male - SMS screening: negative - Cystic fibrosis screening: negative - heart rate: 148-149 bpm (normal) Office Procedures [facility] LOC & Office Proc's Nursing/Assessment Patient Status: Established Patient OB Clinic Nursing Assessment: Medication Reconciliation, Update PMH in EMR and Vital Signs OB Clinic Coordination of Care: Complex Care and Chronic Disease 1-5, Consent,records obtained, informed consent, Education Simp Pt/Fam, Lab and Imaging orders, Results/Orders obtained and Staff clarify orders Special Needs: Heart tones Established Patient Charge Established Patient Point Assignment: 135 Established Patient Point Charge: EP Level 4 (120-155) Assessment & Plan Diagnosis / Problem List (1) Maternal care for (suspected) abnormality and damage, unspecified, not applicable or unspecified: Status: Acute Plan Problem List - at 33 weeks and 1 day gestation - Ray Arevalo contractions Assessment 33 weeks and 1 day gestation in a patient with reassuring status. Laboratory results show hemoglobin of 12.1 and nonreactive RPR. MFM ultrasound at 32 weeks 5 days demonstrates single fetus in cephalic presentation with estimated weight of 2014 grams at 37th percentile, normal amniotic fluid, normal anatomy, and resolution of previously noted renal pelvis dilatation. Patient reports intermittent contractions that are not occurring at regular 5-minute intervals, consistent with Ray Arevalo contractions. heart rate is 152 bpm, which is within normal limits. Plan - GBS culture swab at 36 weeks - Follow up in 2-3 weeks - Order CBC (previous order did not come through) - Patient instructed to time contractions and come in for evaluation if contractions are 5 minutes apart and persist for 20-30 minutes 1. Progress Reviewed gestational age at 33 weeks 1 day, growth with EFW 2014 grams at 37th percentile, and heart rate of 152 bpm. Planned frequent visits (every 2 weeks until 36 weeks, then weekly). 2. Instructed patient to monitor movements and report decreases immediately. 3. Testing Counseled on routine third-trimester labs per guidelines including GBS culture swab at 36 weeks. Discussed potential need for ultrasound or monitoring based on risk factors. 4. Preeclampsia Precaution Educated on preeclampsia signs: severe headache, vision changes, right upper quadrant pain, sudden swelling. Advised urgent reporting of symptoms and discussed blood pressure monitoring if high risk. 5. Labor Precautions Reviewed labor signs including regular contractions 5 minutes apart persisting for 20-30 minutes, pelvic pressure, back pain, bleeding, or fluid leakage. Explained Ray Arevalo contractions are normal. Instructed to seek immediate care for these symptoms. 6. Lifestyle and Delivery Preparation Reinforced vitamins, nutrition, and safe activity. Discussed plan, pain management, and . Advised on labor preparation (e.g., hospital bag) and expectations. 7. Psychosocial Support Assessed emotional well-being and offered resources for mental health or parenting support.
[2025-03-17 08:56] VITALS: BP 116/80; PULSE 90; RESP 18; TEMP 36.2; O2SAT 98
== END 2025-03-17 09:36 | disposition home or self-care (01) ==
LOC: HODSOBC 08:52
PROVIDERS: Supervising Provider Obstetrics & Gynecology; Visit Provider Obstetrics & Gynecology
DX: O09.893 Supervision of other high risk pregnancies, third trimester (principal); O35.9XX0 Maternal care for (suspected) fetal abnormality and damage, unspecified, not applicable or unspecified; Z3A.33 33 weeks gestation of pregnancy; O47.03 False labor before 37 completed weeks of gestation, third trimester
CPT/HCPCS: 99214; G0463

== ENCOUNTER 2025-03-28 09:47 | Outpatient (AMB) | payer MEDICAID, SELFPAY ==
[2025-03-28 10:06] VITALS: BP 121/77; PULSE 79; RESP 18; TEMP 36.2; O2SAT 98
--- NOTE | 2025-03-28 10:06 | OBCLNT_ITS ---
Vital Signs 03/28/25 10:06 Weight 96.332 kg Weight Measurement Method Standing Scale BP 121/77 Blood Pressure Source Automatic Cuff Blood Pressure Location Left Upper Arm Position Sitting Respiration 18 Pulse 79 Pulse Source Monitor Temp 97.2 F Temp Source Oral Pulse Oximetry (%) 98 Oxygen Delivery Method Room Air Allergies/Home Meds Allergies & Medications Allergies No Known Allergies Allergy (Verified 03/28/25 10:07) Medication Reconciliation aspirin 81 mg tablet,delayed release (Adult Aspirin Regimen) 81 mg PO QDAY #60 tabs 10/20/24 [Rx Confirmed 03/28/25] valacyclovir 1 gram tablet (Valtrex) 1,000 mg PO QDAY #60 tabs 10/20/24 [Rx Confirmed 03/28/25] vits no.126-ferrous fum 28 mg iron-folic acid 800 mcg tablet (Classic ) 1 tab PO DAILY 01/11/25 [History Confirmed 03/28/25] Immunizations Immunizations Flu Vaccine in the Last 12 Months: No Flu Vaccine Exclusion Criteria: Refused by Patient Care OB Visit Log OB Flowsheet Initial Weight: Not Recorded Date -?-?-?-?-?-?-?-?--?-?-?-?- EGA Weight BP Alb Glu CTX Pres Fundal ht FHR Mov Dilation Station Effacement Hx Notes Visit Note 11/16/24 -?-?-?-?-?-?-?-?-?-?-?-?- 15w 6d 87.317 kg 127/80 occasional unknown 155 14w0d with h/o pulmonary embolism and 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 LMP 07/28/24, KODI 05/04/25 confirmed by sono. FHR 150, anatomy appropriate, placenta and fluid normal. Denies cramping, nausea, or OB complaints. Reports back pain without detail. Prior delivery full-term and uncomplicated. PE occurred after prior knee surgery; prophylactic Lovenox given in prior . P darnell: Continue Valtrex and vitamins, monitor for VTE s/sx, consider Lovenox again. Send to [facility] for anatomy scan. Labs pending from [facility]?will call if abnormal. F/u in 4 weeks. 12/21/24 -?-?-?-?-?-?-?-?-?-?-?-?- 20w 6d 89.584 kg 118/73 occasional unknown 145 No contractions, LOF, VB and reports good FM. Patient reports lower back pain and left -sided pain, as well as pelvic pressure. Denies urinary symptoms, fever, or chills. Denies SNELL, VC, and epigastric pain. - Myla Villafana is a 1 para 1 f emale at 20 weeks and 6 days gestation presenting for routine care. - She reports lower back pain affecting her whole lower back and left side. - She experiences pelvic pressure descri bed as a lot of pressure down there. - She denies urinary symptoms including frequency, urgency, or burning. - She denies fever or chills. - She reports normal urinary patterns. - Glucose tolerance test to be completed at [facility] 1-2 days before next appointment (approximately 3-4 weeks from now, around 24 weeks gestation) - Follow up appointment in 4 weeks - Continue current care 01/11/25 -?-?-?-?-?-?-?-?-?-?-?-?- w 6d 90.718 kg 117/75 occasional unknown 155 - Myla Villafana presents for routine visit at 23 weeks and 6 days gestation. - Patient has a history of pulmonary emb olism after knee surgery in 2019. - Patient has not completed glucose and other laboratory tests that were ordered at the last appointment. - Patient reports feeling pressure and i s requesting to be placed out of work on disability. - Patient is experiencing symptoms ana rning for labor, prompting discussion of labor workup including internal ultrasound and fibronectin (FFN) testing. - Com plete glucose test and other labs that were ordered at previous appointment - Proceed to hospital for labor workup including internal ultrasound and fibronectin (FFN) test - Initiate 4-week work disability leave with plan to extend for remainder of when patient reaches approximately 28 weeks gestation - Provide work disability letter to lizzy ent - Follow up appointment scheduled for 01/20/25 -?-?-?-?-?-?-?-?-?-?-?-?- 25w 1d 91.852 kg 115/61 absent unknown 148 - She reports the baby is active with no contractions or other issues. - She confirms adherence to vit amins. - She denies diabetes. - Fol low up in 4 weeks - Next round of blood tests due at next visit (around 30 weeks) - Tdap vaccine administration at next vi sit - Continue vitamins 02/21/25 -?-?-?-?-?-?-?-?-?-?-?-?- 29w 5d 93.894 kg 116/74 absent unknown 145 - She recently saw maternal medicine for consultation regarding her history of blood clot. - Patient reports she is doing well over all, stating I'm good when asked about how everything is going. - She is currently taking baby aspirin a s prescribed from the beginning of . - Taking two 81mg tablets daily for a total of 162mg (equivalent to high-dose aspirin at 160mg as recommended by maternal medicine). - She is not currently on anticoagulatio n therapy during this . - Patient had an ultrasound on January 31 showing baby measuring 840 grams at the 38th percentile. - She has an upcoming follow-up ultrasou nd scheduled for March 14 with Arvind Mathis to recheck the baby's kidneys. - Continue high-dose aspirin 160 mg daily (patient currently taking two 81 mg tablets) - [facility] for [facility] (routine 30-week testing) - Defer thrombophilia labs until 6-8 wee ks for more accurate results - Follow-up ultrasound with Arvind kendall on March 14 to reassess kidneys - Schedule next obstetric visit after De cember 16 ultrasound - Call patient if any lab abnormalities before next visit 03/28/25 -?-?-?-?-?-?-?-?-?-?--?-?- 34w 5d 96.332 kg 121/77 occasional unstable 35 135 active - She reports experiencing contractions but describes them as not that bad. - She did not seek evaluation at the h ospital due to the mild nature of the contractions. - She experiences soreness in her back . - She clarifies that her previous delive ry was not labor, contrary to what was documented in her delivery record. - She reports that renal dilatatio n has resolved per last [facility] ultrasounds. - Group B strep culture swab to be performed at next appointment - Follow up in 2 weeks - Patient instructed to come to hospital for evaluation if experiencing contractions given history KODI Calculator Estimated Delivery Date Method Current WG Current Estimate 05/04/25 LMP (Certain) 34w 5d Notes Visit Date: 12/21/24 Last Updated by: Steffen Chandra MD - Hepatitis B screen: negative - Hepatitis C: negative - Rubella: immune - Blood group: B positive - Antibody screen: negative - HIV: non-reactive - Gonorrhea: negative - Maternity genome testing: negative for trisomy 21, 18, 13; gender consistent with male - SMS screening: negative - Cystic fibrosis screening: negative - heart rate: 148-149 bpm (normal) Office Procedures [facility] LOC & Office Proc's Nursing/Assessment Patient Status: Established Patient OB Clinic Nursing Assessment: Medication Reconciliation, Update PMH in EMR and Vital Signs OB Clinic Coordination of Care: Complex Care and Chronic Disease 1-5, Consent,records obtained, informed consent, Education Simp Pt/Fam, Lab and Imaging orders, Ref for ancillary service and Staff clarify orders Established Patient Charge Established Patient Point Assignment: 130 Established Patient Point Charge: EP Level 4 (120-155) Assessment & Plan Diagnosis / Problem List (1) Maternal care for (suspected) abnormality and damage, unspecified, not applicable or unspecified: Status: Acute (2) Genital herpes affecting : Status: Acute Plan Problem List - - Pulmonary embolism Assessment 33-week and 5-day patient with history of pulmonary embolism currently on aspirin prophylaxis, presenting for routine follow-up. Patient reports experiencing contractions but clarifies they are not severe. Previous documentation suggested labor history, however patient clarifies delivery occurred at term. renal pelvis dilatation has resolved per recent maternal- medicine ultrasounds. heart rate is normal at 135 bpm. Plan - Group B strep culture swab to be performed at next appointment - Follow up in 2 weeks - Patient instructed to come to hospital for evaluation if experiencing contractions given history 1. Progress Reviewed gestational age (34 weeks 5 days), growth, and heart rate (135 bpm, normal). Planned frequent visits (every 2 weeks until 36 weeks, then weekly). 2. Instructed patient to monitor movements and report decreases immediately. 3. Testing Counseled on routine third-trimester labs per guidelines. Discussed Group B Strep culture to be performed at next visit. 4. Preeclampsia Precaution Educated on preeclampsia signs: severe headache, vision changes, right upper jai drant pain, sudden swelling. Advised urgent reporting of symptoms and discussed blood pressure monitoring if high risk. 5. Labor Precautions Reviewed labor signs: regular contractions, pelvic pressure, back pain, bleeding, or fluid leakage. Instructed to seek immediate care for these symptoms, especially given patient's report of contractions. 6. Lifestyle and Delivery Preparation Reinforced vitamins, nutrition, and safe activity. Discussed plan, pain management, and . Advised on labor preparation (e.g., hospital bag) and expectations. 7. Psychosocial Support Assessed emotional well-being and offered resources for mental health or parenting support.
== END 2025-03-28 10:26 | disposition home or self-care (01) ==
LOC: HODSOBC 09:47
PROVIDERS: Supervising Provider Obstetrics & Gynecology; Visit Provider Obstetrics & Gynecology
DX: O09.893 Supervision of other high risk pregnancies, third trimester (principal); O35.9XX0 Maternal care for (suspected) fetal abnormality and damage, unspecified, not applicable or unspecified; O98.313 Other infections with a predominantly sexual mode of transmission complicating pregnancy, third trimester; A60.00 Herpesviral infection of urogenital system, unspecified; Z3A.34 34 weeks gestation of pregnancy; Z86.711 Personal history of pulmonary embolism; Z79.82 Long term (current) use of aspirin
CPT/HCPCS: 99214; G0463